=== PATIENT | female | born 1950 | race Hispanic/Latino ===

== ENCOUNTER 2021-05-25 07:04 | Day surgery (SDC) | payer OTHER ==
[2021-05-20 14:04] LABS: Protime INR 1.01
[2021-05-20 14:04] LABS: Urine Appearance CLEAR (Clear); Urine Bilirubin NEGATIVE (Negative); Urine Blood NEGATIVE (Negative); Urine Color YELLOW (Yellow); Urine Glucose NEGATIVE (Negative); Urine Protein NEGATIVE (Negative); Urine Specific Gravity <=1.005 (1.005-1.030); Urine Urobilinogen 0.2 mg/dL (0.2-1.0); Urine pH 7.5 (5.0-7.0)
[2021-05-20 14:06] LABS: Urine Microscopic Reflex NO UMIC
[2021-05-20 14:07] LABS: Absolute Lymphocytes (CBC) 1.9 K/uL (0.7-4.9); Basophils % 0.4 % (0-1.3); Hematocrit 40.7 % (36.0-45.0); Lymphocytes % 23.1 % (15.3-44.8); MPV 8.7 fL (7.6-11.3); RBC Red Blood Cell Count 4.44 M/uL (3.86-4.86)
[2021-05-20 14:12] LABS: Potassium 3.9 mmol/L (3.5-5.1)
--- NOTE | 2021-05-20 14:23 | RAD REPORT ---
EXAM DESCRIPTION: RAD - Chest Pa And Lat (2 Views) - 05/20/2021 2:01 pm CLINICAL HISTORY: preop, pending bladder biopsy, hypertension COMPARISON: Two view chest May 2011 TECHNIQUE: Frontal and lateral views of the chest were obtained. FINDINGS: The lungs are clear. Interstitial pattern matches comparison. Heart size is normal and ce ntral vasculature is within normal limits. No pleural effusion or pneumothorax seen. No acute bony finding noted. No aortic abnormality. IMPRESSION: No acute cardiopulmonary process. No significant change from comparison study.
[2021-05-25] MEDS ORDERED: CEFAZOLIN/SWI 1gm 1 GM/10 ML SYR ONE (08:00)
[2021-05-25] MEDS ORDERED: Ringers Lactate 1,000 ML IV ONE (08:00)
[2021-05-25] MEDS ORDERED: LIDOCAINE 1% MPF 5 ML VIAL ONE (08:56)
[2021-05-25] MEDS ORDERED: propofoL 200 MG/20 ML VIAL IV ONE (08:56)
[2021-05-25] MEDS ORDERED: FENTANYL CITR 100 MCG/2 ML ONE (08:56)
[2021-05-25] MEDS ORDERED: KETOROLAC 30 MG/ML INJ ONE (09:13)
[2021-05-25] MEDS ORDERED: dexAMETHasone 10 MG/ML VIAL ONE (09:13)
[2021-05-25] MEDS ORDERED: ONDANSETRON 4 MG/2 ML VIAL ONE (09:27)
[2021-05-25] MEDS ORDERED: EPHEDRINE SULF 50 MG/ML VIAL ONE (09:29)
[2021-05-25] MEDS ORDERED: NS 0.9% VIAL 10 ML ONE (09:29)
[2021-05-25] MEDS ORDERED: CODEINE 30MG/APAP 300MG TAB ONE (10:54)
[2021-05-25 11:19] VITALS: BP 110/50; TEMP 97.6; O2SAT 99
--- NOTE | 2021-05-25 12:36 | OP ---
Surgeon: ADAMA COOL Preoperative Diagnosis: Bladder lesion. Postoperative Diagnosis: Bladder lesion. Principle Procedure: Cystoscopy and bladder biopsy with fulguration. Indication For Procedure: Ms. Bravo presented to the Urology Clinic, referred by Dr. Mcadams who o bserved a lesion on cystoscopy done for another purpose relative to her irritative lower urinary symp toms. She thus presents for biopsy of that lesion given the low likelihood of malignancy. Procedure In Detail: The patient was consented in the preoperative holding area before being transfe rred to the operative suite where general anesthesia was induced. She was given Ancef 1 g IV antimic robial prophylaxis and pneumo boots were provided for DVT prophylaxis. She was placed in the lithoto my position, padded and secured to the table appropriately. Her genitalia were prepped using Hibicle ns and draped in standard fashion. The case was begun using a 22-Setswana rigid cystoscope to traverse the urethra and into the bladder with ease. The bladder was surveyed in its entirety using both whi te-light cystoscopy as well as narrow band imaging. The previously observed approximately 2 or 3 mm lesion in the trigone near the right ureteral orifice was again observed. No other suspicious lesion s were noted throughout the bladder. There was hypervascularity throughout the bladder, but no defin itive regions of concern. As a result, I used a cold cup biopsy forceps to grasp the lesion and olivier ve it from its location within the trigone. I then fulgurated the base of the lesion using a Bugbee electrode at a cautery setting of 30. The bladder was then decompressed, and there was no ongoing bl eeding. She was then awakened from general anesthesia after being taken out of the lithotomy positio n, transferred to a stretcher, and then transferred to the recovery room in good condition. Complications: None. Discharge Disposition: She should follow up in the Urology Clinic in approximately 1-2 weeks for dis cussion of the pathology. WR/MODL Voice ID: [id number] Report ID: [id number]
== END 2021-05-25 11:15 | disposition home or self-care (01) ==
LOC: OR 07:04
PROVIDERS: ATTEND Urology
PROC: 0TBB8ZX Excision of Bladder, Via Natural or Artificial Opening Endoscopic, Diagnostic (ICD-10-PCS; principal; 2021-05-25 08:15)
DX: N32.9 Bladder disorder, unspecified (principal); Z20.822 Contact with and (suspected) exposure to COVID-19
CPT/HCPCS: 93005; 87088; 85025; 87086; 80048; 36415; 85610; 88305; 81003; 71046; 52204; U0002; J2704; J3010; J1100; J0690; J7120; J2405; 87077; 87186

== ENCOUNTER 2022-07-26 07:18 | Day surgery (SDC) | payer OTHER ==
[2022-07-25 14:58] LABS: SARS-CoV-2 Antigen Rapid Res Negative (Negative)
[2022-07-26] MEDS ORDERED: Ringers Lactate 1,000 ML IV ONE (07:38)
[2022-07-26] MEDS: CEFAZOLIN SODIUM 2 GM/VIAL ONE ×2 (08:15→09:40)
[2022-07-26] MEDS ORDERED: BUPIVACAINE 0.25% PF 30 ML VIAL ONE (09:00)
[2022-07-26] MEDS ORDERED: KETOROLAC 30 MG/ML INJ ONE (09:08)
[2022-07-26] MEDS ORDERED: propofoL 200 MG/20 ML VIAL IV ONE (09:08)
[2022-07-26] MEDS ORDERED: ROCURONIUM 50 MG/5 ML VIAL IV ONE (09:08)
[2022-07-26] MEDS ORDERED: FENTANYL CITR 100 MCG/2 ML ONE (09:08)
[2022-07-26] MEDS ORDERED: LIDOCAINE 2% MPF 5 ML VIAL ONE (09:09)
[2022-07-26] MEDS ORDERED: dexAMETHasone 4 MG/ML VIAL ONE (09:09)
[2022-07-26] MEDS ORDERED: ONDANSETRON 4 MG/2 ML VIAL ONE (09:09)
[2022-07-26] MEDS ORDERED: SUCCINYLCHOLINE 20 MG/ML (10 ML) IV ONE (09:24)
[2022-07-26] MEDS ORDERED: EPHEDRINE SULF 50 MG/ML VIAL ONE (10:17)
[2022-07-26] MEDS ORDERED: PROMETHAZINE INJ 25 MG/ML AMP IV PRN (11:18)
[2022-07-26] MEDS ORDERED: HYDROCODONE/APAP 5/325 MG TAB PO PRN (11:18)
[2022-07-26] MEDS ORDERED: IBUPROFEN 200 MG TAB PO PRN (11:18)
--- NOTE | 2022-07-26 11:23 | P.BOP ---
Preoperative diagnosis: refractory OAB Postoperative diagnosis: same Primary procedure: Stg 1 SNM quadripolar tined lead placement under fluoro guidanceRt S3 Secondary procedure: and programming Television Producer: NONE,NONE Estimated blood loss: min Specimen: none Findings: Left side attempt w/o response, Rt responded well all 4, same side pocket Anesthesia: General Complications: None Transferred to: Recovery Room Condition: Good
[2022-07-26] MEDS ORDERED: IBUPROFEN 200 MG TAB PO ONE (12:12)
[2022-07-26] MEDS ORDERED: IBUPROFEN 400 MG TAB ONE (12:13)
--- NOTE | 2022-07-26 12:20 | RAD REPORT ---
EXAM DESCRIPTION: RAD - Fluoroscopy <1 Hour - 07/26/2022 12:09 pm CLINICAL HISTORY: SACRAL NERUO MODULATION COMPARISON: No comparisons FINDINGS: Fluoroscopy time: 1.6 minutes.
[2022-07-26 15:36] VITALS: BP 141/65; TEMP 97.6; O2SAT 96
[2022-07-27] MEDS ORDERED: LEVOTHYROXINE SOD 0.088 MG TAB PO SCH (06:00)
[2022-07-27] MEDS ORDERED: [UNRECOGNIZED DRUG - OTHER] PO SCH (09:00)
[2022-07-27] MEDS ORDERED: HCTZ PO SCH (09:00)
[2022-07-27] MEDS ORDERED: HOME MED 1 EA UNK (Omeprazole [Prilosec] 40 MG Capsule.Dr) PO SCH (09:00)
[2022-07-27] MEDS ORDERED: BISOPROLOL FUMARATE PO SCH (09:00)
[2022-07-27] MEDS ORDERED: HOME MED 1 EA UNK (Estradiol [Estrace] 42.5 GM Cream.Appl) VG SCH (17:00)
== END 2022-07-26 13:20 | disposition home or self-care (01) ==
LOC: OR 07:18
PROVIDERS: ATTEND Obstetrics & Gynecology
PROC: 01HY3MZ Insertion of Neurostimulator Lead into Peripheral Nerve, Percutaneous Approach (ICD-10-PCS; principal; 2022-07-26 08:30)
DX: N32.81 Overactive bladder (principal); I10 Essential (primary) hypertension; M54.50 Low back pain, unspecified; Z87.440 Personal history of urinary (tract) infections; Z20.822 Contact with and (suspected) exposure to COVID-19
CPT/HCPCS: 36415; 87811; 64561; J2704; J1100; J0330; J2001; J3010; J7120; J2405; 76000

== ENCOUNTER 2022-08-02 07:19 | Day surgery (SDC) | payer OTHER ==
[2022-08-01 14:02] LABS: SARS-CoV-2 Antigen Rapid Res Negative (Negative)
[2022-08-02] MEDS ORDERED: propofoL 200 MG/20 ML VIAL IV ONE ×3 (07:30→09:25)
[2022-08-02] MEDS ORDERED: LIDOCAINE 2% MPF 5 ML VIAL ONE (07:30)
[2022-08-02] MEDS ORDERED: CEFAZOLIN SODIUM 2 GM/VIAL ONE (07:47)
[2022-08-02] MEDS ORDERED: Ringers Lactate 1,000 ML IV ONE (07:47)
[2022-08-02] MEDS ORDERED: LIDOCAINE 1% W/EPI 1:100,000 30 ML VIAL ONE (08:38)
[2022-08-02] MEDS ORDERED: HYDROCODONE/APAP 5/325 MG TAB PO PRN (09:58)
[2022-08-02] MEDS ORDERED: MEPERIDINE HCL 25 MG/ML SYR IM PRN (09:58)
[2022-08-02] MEDS ORDERED: PROMETHAZINE INJ 25 MG/ML AMP IV PRN (09:58)
--- NOTE | 2022-08-02 10:03 | P.BOP ---
Preoperative diagnosis: refractory OAB Postoperative diagnosis: same Primary procedure: [id number], Insertion of non rechargeable pulse generator Secondary procedure: and programming of above stimulator Broiler Chef Or Cook: NONE,NONE Estimated blood loss: min Specimen: none Findings: Right buttock, lead wire under battery,2layer closure Anesthesia: MAC Complications: None Transferred to: Recovery Room Condition: Good
[2022-08-02] MEDS ORDERED: HYDROCODONE/APAP 5/325 MG TAB ONE (10:11)
[2022-08-02 10:18] VITALS: BP 95/51; TEMP 97.4; O2SAT 98
--- NOTE | 2022-08-02 19:08 | OP ---
Date of Procedure: 08/02/2022 Surgeon: Ada Mcadams MD Human Resources Records Clerk: None. Preoperative Diagnosis: Refractory overactive bladder. Postoperative Diagnosis: Refractory overactive bladder. Procedures Performed: Stage II InterStim (this insertion is nonrechargeable pulse generator) and pro gramming of the neurostimulator. Estimated Blood Loss: Minimal. No specimens, complications, or drains. Anesthesia: MAC and local. Disposition: Transfer to the recovery room in stable condition. Findings: Right buttock pocket was extended. The lead wire was placed under the battery with 2-laye r closure was performed. The final settings were programmed one at 1.5 milliamps. She has a 2-week follow up for discussion a nd reprogramming as needed. Description Of Procedure: After successful stage I with an excellent response, the patient was conse nted for stage II and brought to the hospital. She was on antibiotics after her stage I until now, a nd now, she has been given 2 g of Ancef. SCDs were placed. She was placed in supine fashion on the operating table after MAC was given. She was placed in a prone position on the operating table. The back was prepped and draped in a sterile fashion. Using ChloraPrep, local injection 1% lidocaine wi th epinephrine was given at the site of the neurostimulator pocket. 10 cc was injected. The previous buttock pocket incision was opened up after taking down the Dermabond glue of the incisi on. Then, using blunt dissection, the lead and the percutaneous extension connection were identified and elevated. The percutaneous extension was cut and removed from the field ensuring sterility. Th e subcutaneous pocket anterior to the muscle within the subcutaneous fat was enlarged. Hemostasis wa s established. The sutures holding the protective boot were cut and the protective boot was retracte d. The set screws were exposed and loosened with a hex wrench. The boot was removed and discarded. The lead was clamped of the body fluid and dry. The lead was inserted into the header of the InterS richa neurostimulator, and the blue lead tip was visualized at the distal end. Then, the single set sc rew was tightened. The neurostimulator was then placed in the subcutaneous pocket with etched identi fication site placed upwards. The pocket was first irrigated with sterile water. The lead wire was wrapped under the neurostimulator. The programming head was placed over the implanted neurostimulato r in a sterile cover to ensure adequate lead connection and the parameters were within normal limits. Impedances were confirmed to be within normal limits. The wound was then closed with the help of 3-0 chromic sutures x3 in the subcutaneous plane and 4-0 M onocryl running subcuticular sutures. Counts were correct. Glue was placed and bandage placed over the incision. EBL was less than 10 cc. The patient was transferred to same-day surgery in satisfact ory condition. Using the clinician programmer operator numerical control, the generator was programmed for an amplitude of 0.5 and programmed #1. The patient was given instructions on utilizing the patient's programmer operator numerical control prior to discharge. Final electrode settings are as above. The was notified of the findings. MELITON/ROCHELLE Voice ID: [id number] Report ID: [id number]
[2022-08-03] MEDS ORDERED: LEVOTHYROXINE SOD 0.088 MG TAB PO SCH (06:00)
[2022-08-03] MEDS ORDERED: BISOPROLOL FUMARATE PO SCH (09:00)
[2022-08-03] MEDS ORDERED: [UNRECOGNIZED DRUG - OTHER] PO SCH (09:00)
[2022-08-03] MEDS ORDERED: HOME MED 1 EA UNK (Omeprazole [Prilosec] 40 MG Capsule.Dr) PO SCH (09:00)
[2022-08-03] MEDS ORDERED: HCTZ PO SCH (09:00)
[2022-08-03] MEDS ORDERED: HOME MED 1 EA UNK (Estradiol [Estrace] 42.5 GM Cream.Appl) VG SCH (17:00)
== END 2022-08-02 10:50 | disposition home or self-care (01) ==
LOC: OR 07:19
PROVIDERS: ATTEND Obstetrics & Gynecology
PROC: 0JH73BZ Insertion of Single Array Stimulator Generator into Back Subcutaneous Tissue and Fascia, Percutaneous Approach (ICD-10-PCS; principal; 2022-08-02 08:30)
DX: N32.81 Overactive bladder (principal); I10 Essential (primary) hypertension; E03.9 Hypothyroidism, unspecified; Z20.822 Contact with and (suspected) exposure to COVID-19
CPT/HCPCS: 64590; 36415; 87811; J2704 ×3; J2001; J7120

== ENCOUNTER 2025-01-14 12:38 | Emergency (ER) | payer OTHER ==
[2025-01-14 13:13] LABS: Absolute Eosinophils 0.2 K/uL (0-0.5); Absolute Lymphocytes (CBC) 1.9 K/uL (0.7-4.9); Absolute Monocytes 0.4 K/uL (0.1-1.3); Absolute Neutrophil 4.5 K/uL (1.8-8.0); Basophils % 0.5 % (0-1.3); Eosinophils % 2.3 % (0-4.4); Hematocrit 37.1 % (36.0-45.0); Hemoglobin 12.9 g/dL (12.0-15.0); Lymphocytes % 27.6 % (15.3-44.8); MCHC 34.8 g/dL (32.0-36.0); MCV 91.7 fL (80-100); MPV 8.2 fL (7.6-11.3); Monocytes % 5.8 % (3.3-12.3); Neutrophils % 63.8 % (41.7-73.7); Platelets 228 thou/uL (152-406); RBC Red Blood Cell Count 4.04 M/uL (3.86-4.86); Red Cell Distribution Width 13.3 % (12.1-15.2)
--- NOTE | 2025-01-14 13:15 | RAD REPORT ---
EXAM: CT brain without contrast HISTORY: Syncope COMPARISON: None TECHNIQUE: Multiple contiguous axial images were obtained and a CT of the brain without contrast.. Sagittal and coronal reconstruction performed. Automated exposure control, adjustment of the mA and/or kV according to patient size, and/or iterative reconstruction. Unless otherwise specified, incidental f indings do not require dedicated imaging follow-up FINDINGS: An intracranial bleed is not seen Ventricles are normal caliber No extra-axial fluid collection noted No significant hypodensity within the brain. Couple of punctate calcifications within the brain may b e related to prior infection. No fluid within the visualized sinuses or mastoids noted. IMPRESSION: No acute intracranial abnormality noted. If the patient continues to have symptoms to suggest an acute intracranial abnormality then MRI of th e brain would be recommended.
[2025-01-14 13:22] LABS: PT Prothrombin Time 10.5 SECONDS (10-13.0); PTT, Activated Partial Thromb 31.3 SECONDS (27.2-37.4); Protime INR 0.92
[2025-01-14 13:33] LABS: ALT/SGPT 19 U/L (13-56); AST/SGOT 19 U/L (15-37); Albumin 3.4 g/dL (3.4-5.0); Alkaline Phosphatase 84 U/L (45-117); Anion Gap 7.5 mEq/L (5.0-15.0); BUN Blood Urea Nitrogen 23 mg/dL (7-18); Bicarbonate 30 mEq/L (21-32); Bilirubin Total 0.3 mg/dL (0.2-1.0); Globulin 3.3 g/dL (2.3-3.5); Glomerular Filtration Rate 94 ml/min (=/>90); Glucose Level 112 mg/dL (74-106); Magnesium 2.2 mg/dL (1.6-2.4); NT PRO-BNP 107 pg/mL (<125); Potassium 3.5 mEq/L (3.5-5.1); Protein, Total 6.7 g/dL (6.4-8.2); Sodium Level 140 mEq/L (136-145); Troponin High Sensitivity 5.6 pg/mL (<58.9)
[2025-01-14 13:34] LABS: Bilirubin Direct < 0.2 mg/dL (0-0.2); Bilirubin Indirect, Calculated 0.1 mg/dL (0.2-0.8)
[2025-01-14 14:35] LABS: Specific Gravity 1.014 (1.005-1.030); Sqamous Epithelial <5 /HPF (None Seen); Urine Bacteria >50 /HPF (<20); Urine Bilirubin NEGATIVE (Negative); Urine Blood Negative (Negative); Urine Clarity Turbid (Clear); Urine Color Light-Yellow (Yellow); Urine Culture Reflex Order NOT NEEDED; Urine Glucose NEGATIVE (Negative); Urine Ketones NEGATIVE (Negative); Urine Microscopic Reflex YN ORDER UMIC; Urine Mucus Slight /HPF (None Seen); Urine Nitrite 1+ (Negative); Urine Protein NEGATIVE (Negative); Urine RBC <5 /HPF (None Seen); Urine Urobilinogen Normal (Normal); Urine WBC <5 /HPF (<5); Urine Yeast (Budding) Trace /HPF (None Seen)
--- NOTE | 2025-01-14 15:07 | EDPHYS ---
Physician Documentation [facility] Name: Tammy Bravo Age: 74 yrs Sex: Female : 1950 Arrival Date: 01/14/2025 Time: 12:38 Bed 2 Private MD: ED Physician Robel Ochoa HPI: 01/14 14:58 This 74 yrs old Female presents to ER via EMS with complaints of Near Syncope, huber Nausea, Headache. 14:58 The patient has experienced near-syncope, felt faint. Onset: The symptoms/episode huber began/occurred just prior to arrival. Historical: - Allergies: 12:46 No Known Allergies; ld1 - PMHx: 12:46 Hyperthyroidism; Hypertensive disorder; ld1 - PSHx: 12:46 None; ld1 - Immunization history:: Adult Immunizations up to date. - Infectious Disease History:: Denies. - Social history:: Smoking status: Patient denies any tobacco usage or history of. ROS: 14:59 Constitutional: Negative for fever, chills, and weight loss, Eyes: Negative for injury, huber pain, redness, and discharge, ENT: Negative for injury, pain, and discharge, Neck: Negative for injury, pain, and swelling, Cardiovascular: Negative for chest pain, palpitations, and edema, Respiratory: Negative for shortness of breath, cough, wheezing, and pleuritic chest pain, Abdomen/GI: Negative for abdominal pain, nausea, vomiting, diarrhea, and constipation, Back: Negative for injury and pain, : Negative for injury, bleeding, discharge, and swelling, MS/Extremity: Negative for injury and deformity, Skin: Negative for injury, rash, and discoloration, Psych: Negative for depression, anxiety, suicide ideation, homicidal ideation, and hallucinations, Allergy/Immunology: Negative for hives, rash, and allergies, Endocrine: Negative for neck swelling, polydipsia, polyuria, polyphagia, and marked weight changes, Hematologic/Lymphatic: Negative for swollen nodes, abnormal bleeding, and unusual bruising, 14:59 Neuro: Positive for headache, Exam: 14:59 Constitutional: This is a well developed, well nourished patient who is awake, alert, huber and in no acute distress. Head/Face: Normocephalic, atraumatic. Eyes: Pupils equal round and reactive to light, extra-ocular motions intact. Lids and lashes normal. Conjunctiva and sclera are non-icteric and not injected. Cornea within normal limits. Periorbital areas with no swelling, redness, or edema. ENT: Nares patent. No nasal discharge, no septal abnormalities noted. Tympanic membranes are normal and external auditory canals are clear. Oropharynx with no redness, swelling, or masses, exudates, or evidence of obstruction, uvula midline. Mucous membranes moist. Neck: Trachea midline, no thyromegaly or masses palpated, and no cervical lymphadenopathy. Supple, full range of motion without nuchal rigidity, or vertebral point tenderness. No Meningismus. Chest/axilla: Normal chest wall appearance and motion. Nontender with no deformity. No lesions are appreciated. Cardiovascular: Regular rate and rhythm with a normal S1 and S2. No gallops, murmurs, or rubs. Normal PMI, no JVD. No pulse deficits. Respiratory: Lungs have equal breath sounds bilaterally, clear to auscultation and percussion. No rales, rhonchi or wheezes noted. No increased work of breathing, no retractions or nasal flaring. Abdomen/GI: Soft, non-tender, with normal bowel sounds. No distension or tympany. No guarding or rebound. No evidence of tenderness throughout. Back: No spinal tenderness. No costovertebral tenderness. Full range of motion. Female : Normal external genitalia. Skin: Warm, dry with normal turgor. Normal color with no rashes, no lesions, and no evidence of cellulitis. 14:59 Musculoskeletal/extremity: ROM: no acute changes, Circulation is intact in all extremities. Sensation intact. Compartment Syndrome exam of affected extremity: is normal. DVT Exam: No signs of deep vein thrombosis. no pain, no swelling, no tenderness, negative Homans' sign noted on exam, no appreciated bluish discoloration, no erythema, no increased warmth, Vital Signs: 12:45 BP 158 / 73; Pulse 70; Resp 18; Temp 98(O); Pulse Ox 100% on R/A; Weight 55.34 kg; ld1 Height 5 ft. 1 in. ; Pain 8/10; 13:28 BP 156 / 75; Pulse 65; Resp 14; Pulse Ox 100% on R/A; ld1 14:22 BP 147 / 66; Pulse 60; Resp 18; Pulse Ox 100% on R/A; ld1 15:35 BP 120 / 68; Pulse 60; Resp 17; Pulse Ox 100% ; ll1 12:45 Body Mass Index 23.05 (55.34 kg, 154.94 cm) ld1 12:45 Pain Scale: Adult ld1 MDM: 12:51 Medical Screening Exam initiated huber 15:02 Differential Diagnosis: aortic aneurysm, cardiac arrhythmia, cerebrovascular accident, huber emotional response, GI bleed, seizure, vasovagal episode. Data reviewed: vital signs, nurses notes, EMS record, lab test result(s), EKG, radiologic studies, CT scan, plain films. Consideration of Admission/Observation Escalation of care including admission/observation considered. I considered the following discharge prescriptions or medication management in the emergency department Medications were administered in the Emergency Department. See MAR. Independent interpretation of the following test(s) in the Emergency Department EKG: See my EKG interpretation above. Test considered but Not performed: MRI: no mri brain. Care significantly affected by the following chronic conditions: Hypertension, Obesity. 01/14 12:50 Order name: Protime (+inr); Complete Time: 14:57 [facility] 01/14 12:50 Order name: Ptt, Activated; Complete Time: 14:57 [facility] 01/14 12:53 Order name: Basic Metabolic Panel; Complete Time: 14:57 [facility] 01/14 12:53 Order name: CBC with Diff; Complete Time: 14:57 [facility] 01/14 12:53 Order name: LFT's; Complete Time: 14:57 [facility] 01/14 12:53 Order name: Magnesium; Complete Time: 14:57 [facility] 01/14 12:53 Order name: NT PRO-BNP; Complete Time: 14:57 [facility] 01/14 12:53 Order name: Troponin HS; Complete Time: 14:57 [facility] 01/14 12:53 Order name: Urinalysis w/ reflexes; Complete Time: 14:57 [facility] 01/14 12:53 Order name: XRAY Chest (1 view) [facility] 01/14 12:53 Order name: CT Head Brain wo Cont; Complete Time: 14:57 [facility] 01/14 12:50 Order name: Cardiac monitoring; Complete Time: 12:50 [facility] 01/14 12:50 Order name: EKG - Nurse/Tech; Complete Time: 12:50 [facility] 01/14 12:50 Order name: IV Saline Lock; Complete Time: 12:50 ld1 01/14 12:50 Order name: Labs collected and sent; Complete Time: 12:50 ld1 01/14 12:50 Order name: NPO; Complete Time: 12:50 ld1 01/14 12:50 Order name: O2 Per Protocol; Complete Time: 12:50 ld1 01/14 12:50 Order name: O2 Sat Monitoring; Complete Time: 12:50 ld1 Administered Medications: No medications were administered Disposition Summary: 01/14/25 15:07 Discharge Ordered Notes: Location: Home huber Problem: new huber Symptoms: have improved huber Condition: Stable huber Diagnosis - Syncope Near huber - Essential (primary) hypertension huber Followup: huber - With: Private Physician - When: 2 - 3 days - Reason: Recheck today's complaints, Continuance of care, Re-evaluation by your physician Followup: huber - With: Shashank Ramirez MD - When: 2 - 3 days - Reason: Recheck today's complaints, Re-evaluation by your physician Discharge Instructions: - Discharge Summary Sheet huber - Hypertension, Adult huber - Near-Syncope huber - Near-Syncope, [id number] huber - Hypertension, Adult, Qwqi-qe-Uuyb huber - How to Take Your Blood Pressure, Bgqw-se-Nleh huber - Managing Your Hypertension huber Forms: - Medication Reconciliation Form huber - Antibiotic Education huber - Prescription Opioid Use huber - Patient Portal Instructions huber - Leadership Thank You Letter huber Signatures: Dispatcher [employer] EDRobel Fletcher MD MD cha Sims, Lauren, RN RN ld1 Corrections: (The following items were deleted from the chart) 12:51 12:51 PROTIME (+INR)+COAG.LAB.BRZ ordered. EDMS EDMS 12:51 12:51 PTT, ACTIVATED+COAG.LAB.BRZ ordered. EDMS EDMS 12:51 12:51 Chest Single View+RAD.RAD.BRZ ordered. EDMS EDMS 12:54 12:54 Chest Single View+RAD.RAD.BRZ ordered. EDMS EDMS 12:54 12:54 Head Brain Wo Cont+CT.RAD.BRZ ordered. EDMS EDMS 13:12 12:51 BASIC METABOLIC PANEL+C.LAB.BRZ ordered. EDMS EDMS 13:12 12:51 CBC+H.LAB.BRZ ordered. EDMS EDMS 13: 12:51 HEPATIC FUNCTION+C.LAB.BRZ ordered. EDMS EDMS 13: 12:51 MAGNESIUM+C.LAB.BRZ ordered. EDMS EDMS 13: 12:51 Troponin High Sensitivity+C.LAB.BRZ ordered. EDMS EDMS 13: 12:54 PROTIME (+INR)+COAG.LAB.BRZ ordered. EDMS EDMS
--- NOTE | 2025-01-14 15:07 | ER ---
Nurse's Notes [facility] Name: Tammy Bravo Age: 74 yrs Sex: Female : 1950 Arrival Date: 01/14/2025 Time: 12:38 Bed 2 Private MD: Diagnosis: Syncope Near;Essential (primary) hypertension Presentation: 01/14 12:45 Chief complaint: EMS states: toned out for near syncopal episode, nausea, headache. Pt ld1 recently taken off of blood pressure medications. C/O headache. Coronavirus screen: At this time, the client does not indicate any symptoms associated with coronavirus-19. Ebola Screen: No symptoms or risks identified at this time. Initial Sepsis Screen: Does the patient meet any 2 criteria? No. Patient's initial sepsis screen is negative. Does the patient have a suspected source of infection? No. Patient's initial sepsis screen is negative. Risk Assessment: Do you want to hurt yourself or someone else? Patient reports no desire to harm self or others. Onset of symptoms was January 14, 2025. 12:45 Method Of Arrival: EMS: [facility] ld1 12:45 Acuity: JAMES 3 ld1 Triage Assessment: 12:46 General: Appears in no apparent distress. comfortable, Behavior is calm, cooperative, ld1 appropriate for age. Pain: Complains of pain in face Pain does not radiate. Pain currently is 8 out of 10 on a pain scale. Quality of pain is described as throbbing, Pain began suddenly, Is continuous. EENT: No signs and/or symptoms were reported regarding the EENT system. Neuro: Level of Consciousness is awake, alert, obeys commands, Oriented to person, place, time, situation. Cardiovascular: Capillary refill < 3 seconds Patient's skin is warm and dry. Rhythm is sinus rhythm. Respiratory: Airway is patent Respiratory effort is even, unlabored. GI: Abdomen is round non-distended, Reports nausea. : No signs and/or symptoms were reported regarding the genitourinary system. Derm: No signs and/or symptoms reported regarding the dermatologic system. Musculoskeletal: No signs and/or symptoms reported regarding the musculoskeletal system. Historical: - Allergies: 12:46 No Known Allergies; ld1 - PMHx: 12:46 Hyperthyroidism; Hypertensive disorder; ld1 - PSHx: 12:46 None; ld1 - Immunization history:: Adult Immunizations up to date. - Infectious Disease History:: Denies. - Social history:: Smoking status: Patient denies any tobacco usage or history of. Screenin:48 [facility] ED Fall Risk Assessment (Adult) History of falling in the last 3 months, ld1 including since admission No falls in past 3 months (0 pts) Confusion or Disorientation No (0 pts) Intoxicated or Sedated No (0 pts) Impaired Gait No (0 pts) Mobility Assist Device Used No (0 pt) Altered Elimination No (0 pt) Score/Fall Risk Level 0 - 2 = Low Risk Oriented to surroundings, Hourly rounding (assess needs \T\ fall precautionary measures) done. Abuse screen: Denies threats or abuse. Denies injuries from another. Nutritional screening: No deficits noted. Tuberculosis screening: No symptoms or risk factors identified. Assessment: 12:48 Reassessment: See triage assessment. GI: Abdomen is round non-distended, Reports nausea.ld1 13:28 Reassessment: Patient appears in no apparent distress at this time. No changes from ld1 previously documented assessment. Patient and/or family updated on plan of care and expected duration. Pain level reassessed. Patient is alert, oriented x 3, equal unlabored respirations, skin warm/dry/pink. Vital Signs: 12:45 BP 158 / 73; Pulse 70; Resp 18; Temp 98(O); Pulse Ox 100% on R/A; Weight 55.34 kg; ld1 Height 5 ft. 1 in. ; Pain 8/10; 13:28 BP 156 / 75; Pulse 65; Resp 14; Pulse Ox 100% on R/A; ld1 14:22 BP 147 / 66; Pulse 60; Resp 18; Pulse Ox 100% on R/A; ld1 15:35 BP 120 / 68; Pulse 60; Resp 17; Pulse Ox 100% ; ll1 12:45 Body Mass Index 23.05 (55.34 kg, 154.94 cm) ld1 12:45 Pain Scale: Adult ld1 ED Course: 12:43 Patient arrived in ED. ld1 12:46 Triage completed. ld1 12:46 Arm band placed on right wrist. EKG completed in triage. Results shown to MD. ld1 12:48 Patient has correct armband on for positive identification. Bed in low position. Call ld1 light in reach. Side rails up X2. property assessment monitor on. Pulse ox on. NIBP on. Door closed. Noise minimized. Warm blanket given. 12:48 No provider procedures requiring assistance completed. Maintain EMS IV. Dressing ld1 intact. Good blood return noted. Site clean \T\ dry. Gauge \T\ site: 20G RAC. 12:49 Mona Tate, RN is Primary Nurse. ld1 12:51 Robel Ochoa MD is Attending Physician. [facility] 13:06 CT Head Brain wo Cont In Process Unspecified. EDMS 14:01 XRAY Chest (1 view) In Process Unspecified. EDMS 15:07 Shashank Ramirez MD is Referral Physician. [facility] 15:36 Provided Education on: return to ED for worsening symptoms. ll1 15:36 IV discontinued, intact, bleeding controlled, No redness/swelling at site. Pressure ll1 dressing applied. Administered Medications: No medications were administered Medication: 12:48 VIS not applicable for this client. ld1 Outcome: 15:07 Discharge ordered by . [facility] 15:36 Discharged to home ambulatory, ll1 15:36 Condition: stable 15:36 Discharge instructions given to patient, family, Instructed on discharge instructions, follow up and referral plans. Demonstrated understanding of instructions, follow-up care, 15:36 Patient left the ED. ll1 Signatures: Dispatcher [employer] Robel Solomon MD MD cha Lewis, Lynsay, RN RN ll1 Mona Tate, RN RN ld1
[2025-01-14 15:51] VITALS: TEMP 98; O2SAT 100
[2025-01-14 16:04] VITALS: BP 120/68
--- NOTE | 2025-01-14 16:23 | RAD REPORT ---
EXAM: Chest Single View HISTORY: 74 years Female COUGH COMPARISON: 05/20/2021 FINDINGS: LUNGS/PLEURA: The lungs are clear. No pleural effusions or pneumothorax. No pulmonary edema. CARDIAC/MEDIASTINUM: The cardiac silhouette is within normal limits. UPPER ABDOMEN: No significant abnormality. BONES: No acute abnormality. LINES/TUBES/OTHER: N/A IMPRESSION: No evidence of acute cardiopulmonary disease. No significant change from prior.
--- NOTE | 2025-01-15 12:01 | EKG ---
Test Date: 2025-01-14 Test Time: 12:53:55 [employer]: JOSE DE JESUS MEASUREMENT RESULTS: Intervals: Rate: 63 SC: 154 QRSD: 70 QT: 430 QTc: 440 [place]: P: 57 SC: 154 QRS: 47 T: 48 INTERPRETIVE STATEMENTS: Normal sinus rhythm Nonspecific T wave abnormality Abnormal ECG Compared to ECG 05/20/2021 12:35:45 T-wave abnormality now present Sinus bradycardia no longer present Electronically Signed On 01-15-25 11:57:46 CDT by Alvin Jimenez
== END 2025-01-14 15:36 | disposition home or self-care (01) ==
LOC: ER 12:38
DX: R55 Syncope and collapse (principal); I10 Essential (primary) hypertension
CPT/HCPCS: 36415; 70450; 71045; 80048; 80076; 81001; 83735; 83880; 84484; 85025; 85610; 85730; 93005; 99284